=== PATIENT | male | born 1950 | race Caucasian/White ===

== ENCOUNTER 2024-09-10 08:25 | Outpatient (CLI) | payer MEDICARE ==
[2024-09-10] MEDS ORDERED: Magnevist 469MG/ML 20 ML VIAL ONE (10:34)
== END 2024-09-10 08:26 | disposition home or self-care (01) ==
LOC: CSHMRI 08:25
PROVIDERS: ATTEND Family Medicine
DX: R97.20 Elevated prostate specific antigen [PSA] (principal); N40.2 Nodular prostate without lower urinary tract symptoms; R93.89 Abnormal findings on diagnostic imaging of other specified body structures
CPT/HCPCS: 36415; 72197; 82565